=== PATIENT | female | born 1970 | race Caucasian/White ===

== ENCOUNTER 2020-09-12 09:53 | Inpatient (IN) | payer OTHER ==
[~2020-09-12] VITALS: Ht 177.8 cm; Wt 94.6 kg
[2020-09-12] MEDS ORDERED: ATOR40TA75 PO (10:42)
[2020-09-12] MEDS ORDERED: PARO20TA4 PO (10:42)
[2020-09-12 10:46] LABS: BASO % 0.5 % (0.0-1.0); EOS # 0.1 10^3/uL (0.0-0.5); EOS % 1.1 % (0.0-3.0); HEMOGLOBIN 12.1 g/dl (12.0-15.5); LYMPH # 1.8 10^3/uL (1.5-5.0); LYMPH % 23.9 % (24.0-44.0); MEAN CORPUSCULAR HEMOGLOBIN 30.9 pg (27.0-33.0); MEAN CORPUSCULAR HGB CONC 32.7 g/dl (32.0-36.5); MEAN CORPUSCULAR VOLUME 94.6 fl (80.0-96.0); MONO # 0.6 10^3/uL (0.0-0.8); MONO % 7.3 % (2.0-8.0); NEUTROPHILS # 5.1 10^3/uL (1.5-8.5); NEUTROPHILS % 66.9 % (36.0-66.0); PLATELET COUNT, AUTOMATED 267 10^3/uL (150-450); RED BLOOD COUNT 3.91 10^6/uL (4.00-5.40); WHITE BLOOD COUNT 7.6 10^3/uL (4.0-10.0)
--- NOTE | 2020-09-12 10:56 | REP ---
INDICATION: DYSPNEA/COUGH COMPARISON: None. TECHNIQUE: Portable AP view of the chest FINDINGS: The mediastinum is within normal limits. Cardiomegaly is suggested. The lung colby are clear without acute consolidation, effusion, or pneumothorax. Skeletal structures are intact. IMPRESSION: Cardiomegaly suggested. No acute cardiopulmonary process appreciated. <Electronically signed by Juan Manuel Castellanos > 09/12/20 [id number]
[2020-09-12 11:21] LABS: BLOOD UREA NITROGEN 16 MG/DL (7-18); CALCIUM LEVEL 8.6 MG/DL (8.5-10.1); CARBON DIOXIDE LEVEL 25 MEQ/L (21-32); CHLORIDE LEVEL 110 MEQ/L (98-107); CK-MB VALUE MASS 2.4 NG/ML (<3.6); CPK CREATINE PHOSPHOKINASE 130 U/L (26-192); CREATININE FOR GFR 0.89 MG/DL (0.55-1.30); GLOMERULAR FILTRATION RATE > 60.0 (>51); GLUCOSE, FASTING 100 MG/DL (70-100); MB/CK RELATIVE INDEX 1.85 (< OR =4); NT-PRO BNP 3889 PG/ML (<125); POTASSIUM SERUM 4.2 MEQ/L (3.5-5.1); SODIUM LEVEL 141 MEQ/L (136-145); TROPONIN I < 0.02 NG/ML (< 0.10)
[2020-09-12] MEDS ORDERED: ISOVUE-370 76% 100ML VIAL As Ordered ONE (12:31)
[2020-09-12] MEDS ORDERED: ACETAMINOPHEN TAB 650MG DOSE (2X325MG) PO PRN (12:35)
--- NOTE | 2020-09-12 12:40 | HPEPDOC ---
[facility] Medical History & Physical Date of Admission September 12, 2020 Date of Service: September 12, 2020 History and Physical Chief complaint: Who presented to the emergency room with complaints of shortness of breath History of present illness: Patient is a 49-year-old female with past medical history of high cholesterol, depression and GERD who presented to the emergency room with complaints of shortness of breath progressing over 1 week. Patient has reported a nonproductive cough. Reports some chest tightness. Denies any chest pain. Patient denies any lower extremity edema, but does report waking up at night short of breath. Patient reports that her days. Feels very fatigued. Patient denies any nausea, vomiting, any constipation, diarrhea, or urinary discomfort. She does report some upper abdominal fullness. Patient was that she quit smoking one month ago. Hospitalist service was contacted for an elevated BNP and cardiomegaly, and was suspected as congestive heart failure. Past Medical History: DLP Depression GERD Past Surgical History: Bilateral carpal tunnel surgery Allergies: See below Medications: See below Family History: - No history of malignancies Social History: - Denies the use of illicit drugs; rarely uses alcohol; quit smoking one month ago but was a smoker of 30 years at one PPD - Denies recent travel or sick contacts - Lives with sister - Occupation; reports that she works at [employer] Review of Systems: 10 point review of systems complete, all negative otherwise stated in HPI Physical exam: - Vitals: BP [124/81], HR [101], RR [16], Sat [96%RA], Temp [971F] - General: Lying in bed, No acute distress, Speaking in full sentences, AAOx3 - HEENT: NC, AT, PERRLA - CVS: Tachycardic, +S1S2 - Lungs: Fair air entry bilaterally, No appreciable wheezing / rales / rhonchi - Abdomen: Soft, Non-distended, Non-tender - Extremities: No lower extremity edema, No calf tenderness - Neuro: No focal motor or sensory deficit - Skin: No visible rashes Labs: See below Imaging: CXR 09/12: Cardiomegaly suggested. No acute cardiopulmonary process appreciated. EKG: See below Assessment and Plan: Shortness of breath - Patient presented to the ER complaints of shortness of breath, progressive over one week - Physical does not reveal any evidence of fluid overload - BNP noted to be 3889 - Imaging noted above with cardiomegaly and no significant evidence of fluid overload - EKG reviewed - Will get CT angiogram of chest - Will check ECHO / Telemetry / Troponin trend - Will determine need of diuretic therapy after imaging DLP - c/w Atorvastatin Depression - Patient appeared to be tearful in the room after she was told by the ER providers that she had CHF - c/w paroxetine GERD - Will start Protonix DVT prophylaxis - Will start Lovenox Vital Signs Vital Signs Date Time Temp Pulse Resp B/P (MAP) Pulse Ox O2 Delivery O2 Flow Rate FiO2 09/12/20 11:40 101 16 124/81 (95) 96 Room Air 09/12/20 09:54 97.1 Laboratory Data Labs 24H Laboratory Tests 2 09/12/20 10:32: Immature Granulocyte % (Auto) 0.3, Neutrophils (%) (Auto) 66.9H, Lymphocytes (%) (Auto) 23.9L, Monocytes (%) (Auto) 7.3, Eosinophils (%) (Auto) 1.1, Basophils (%) (Auto) 0.5, Neutrophils # (Auto) 5.1, Lymphocytes # (Auto) 1.8, Monocytes # (Auto) 0.6, Eosinophils # (Auto) 0.1, Basophils # (Auto) 0.0, Nucleated Red Blood Cells % (auto) 0.4H, Anion Gap 6L, Glomerular Filtration Rate > 60.0, Calcium Level 8.6, Total Creatine Kinase 130, Creatine Kinase MB 2.4, Creatine Kinase MB Relative Index 1.85, Troponin I < 0.02, JA-Rkq-M-Type Natriuretic Peptide 3889H, Thyroid Stimulating Hormone (TSH) 2.470 CBC/BMP Laboratory Tests 09/12/20 10:32 Microbiology Microbiology 09/12/20 Respiratory Virus Panel (PCR) (STALIN) - Final, Complete Home Medications Scheduled Atorvastatin Calcium (Atorvastatin Calcium) 40 Mg Tablet, 40 MG PO QHS Paroxetine HCl (Paroxetine) 20 Mg Tablet, 20 MG PO DAILY Allergies Coded Allergies: No Known Allergies (Unverified , 09/12/20) SEA BAINS MD September 12, 2020 12:40
--- NOTE | 2020-09-12 13:04 | REP ---
INDICATION: SOB COMPARISON: None. TECHNIQUE: Axial contrast enhanced images from the thoracic inlet to the upper abdomen using pulmonary embolus technique with multiplanar re-formations. 75 ml Isovue 370 intravenous contrast material administered without complication. This CT examination was performed using the following dose reduction techniques: Automated exposure control, adjustment of mA and/or kv according to the patient's size, and use of iterative reconstruction technique. FINDINGS: Satisfactory enhancement of the pulmonary vasculature is achieved and no filling defects are identified to suggest pulmonary embolus. Cardiomegaly is appreciated along with moderate bilateral pleural effusions and pulmonary vascular congestion. No consolidation. No adenopathy. IMPRESSION: 1. No pulmonary embolus. 2. Cardiomegaly and moderate pulmonary vascular congestion with moderate pleural effusions. <Electronically signed by Juan Manuel Castellanos > 09/12/20 1300
[2020-09-12 13:27] LABS: CK-MB VALUE MASS 2.3 NG/ML (<3.6); CPK CREATINE PHOSPHOKINASE 132 U/L (26-192); MB/CK RELATIVE INDEX 1.74 (< OR =4); TROPONIN I < 0.02 NG/ML (< 0.10)
[2020-09-12] MEDS ORDERED: FUROSEMIDE 40MG/4ML VIAL (J1940) IV ONE ×2 (14:00→21:00)
[2020-09-12 14:30] VITALS: BP 127/83
[2020-09-12] MEDS: ENOXAPARIN 40MG/0.4ML SYRINGE (J1650 PER 10MG) SC SCH (14:51)
[2020-09-12] MEDS: PANTOPRAZOLE 40MG TAB (PROTONIX) PO SCH (14:52)
[2020-09-12 16:00] VITALS: BP 129/76
[2020-09-12 17:12] LABS: CK-MB VALUE MASS 2.1 NG/ML (<3.6); CPK CREATINE PHOSPHOKINASE 132 U/L (26-192); MB/CK RELATIVE INDEX 1.59 (< OR =4); TROPONIN I < 0.02 NG/ML (< 0.10)
[2020-09-12 19:22] LABS: BLOOD UREA NITROGEN 16 MG/DL (7-18); CALCIUM LEVEL 9.2 MG/DL (8.5-10.1); CARBON DIOXIDE LEVEL 26 MEQ/L (21-32); CHLORIDE LEVEL 107 MEQ/L (98-107); CREATININE FOR GFR 1.02 MG/DL (0.55-1.30); GLOMERULAR FILTRATION RATE > 60.0 (>51); GLUCOSE, FASTING 100 MG/DL (70-100); MAGNESIUM LEVEL 1.9 MG/DL (1.8-2.4); PHOSPHORUS LEVEL 3.9 MG/DL (2.5-4.9); POTASSIUM SERUM 3.9 MEQ/L (3.5-5.1); SODIUM LEVEL 142 MEQ/L (136-145)
[2020-09-12 20:00] VITALS: BP 127/86
--- NOTE | 2020-09-12 20:11 | ECGEPIP ---
[facility] - ED Test Date: 2020-09-12 Pat Name: PAULO COFFMAN Department: Room: - Gender: Female Stockroom Clerk: LR : 1970 Requested By: Chaz Macedo Order Number: [id number] Reading MD: Ronnie Thomas Measurements Intervals [place] Rate: 99 P: 44 RI: 184 QRS: -15 QRSD: 88 T: 213 QT: 386 QTc: 495 Interpretive Statements Normal sinus rhythm Possible Left atrial enlargement Anterior infarct , age undetermined Low QRS complex voltage in the limb leads Prolonged QTc interval Comparison tracing not on file Electronically Signed on 09-12-2020 20:11:28 EDT by Ronnie Thomas
[2020-09-12] MEDS: ATORVASTATIN 20 MG TAB PO SCH (20:27)
[2020-09-12 23:10] LABS: CPK CREATINE PHOSPHOKINASE 126 U/L (26-192); MB/CK RELATIVE INDEX 1.59 (< OR =4); TROPONIN I < 0.02 NG/ML (< 0.10)
[2020-09-13] VITALS (8 sets, daily range): BP systolic 105–134; BP diastolic 62–89
[2020-09-13 05:13] LABS: HEMOGLOBIN 12.2 g/dl (12.0-15.5); MEAN CORPUSCULAR HEMOGLOBIN 30.7 pg (27.0-33.0); PLATELET COUNT, AUTOMATED 258 10^3/uL (150-450); RED BLOOD COUNT 3.98 10^6/uL (4.00-5.40); WHITE BLOOD COUNT 6.9 10^3/uL (4.0-10.0)
[2020-09-13 05:32] LABS: ATYPICAL LYMPH 4 % (0-5); BASOPHILS 2 % (0-1); EOSINOPHILS 2 % (0-3); LYMPHOCYTES 22 % (16-44); MONOCYTES 6 % (0-5); NEUTROPHILS 64 % (28-66); PLATELET CLUMPS SMALL AMT; PLATELET ESTIMATE NORMAL (NORMAL)
[2020-09-13 05:36] LABS: BLOOD UREA NITROGEN 18 MG/DL (7-18); CALCIUM LEVEL 8.8 MG/DL (8.5-10.1); CARBON DIOXIDE LEVEL 25 MEQ/L (21-32); CHLORIDE LEVEL 108 MEQ/L (98-107); CREATININE FOR GFR 0.91 MG/DL (0.55-1.30); GLOMERULAR FILTRATION RATE > 60.0 (>51); GLUCOSE, FASTING 99 MG/DL (70-100); MAGNESIUM LEVEL 2.2 MG/DL (1.8-2.4); POTASSIUM SERUM 4.3 MEQ/L (3.5-5.1); SODIUM LEVEL 140 MEQ/L (136-145)
--- NOTE | 2020-09-13 08:08 | REP ---
INDICATION: sob chf check resolution COMPARISON: None. TECHNIQUE: PA and lateral. FINDINGS: Cardiomegaly is again appreciated along with prominent pulmonary vascular markings and increased interstitial markings. Layering left pleural effusion. Findings are similar to prior examination and consistent with given history of CHF. No pneumothorax. IMPRESSION: Findings similar to prior examination with continued evidence for CHF including layering effusions (left greater than right) <Electronically signed by Juan Manuel Castellanos > 09/13/20 0808
[2020-09-13] MEDS ORDERED: metOLazone 5 MG TAB PO ONE ×2 (08:30→20:00)
[2020-09-13] MEDS ORDERED: FUROSEMIDE 20MG/2ML VIAL (J1940) IV SCH (09:00)
[2020-09-13] MEDS ORDERED: FUROSEMIDE 40MG/4ML VIAL (J1940) IV SCH (09:00)
[2020-09-13] MEDS ORDERED: METOPROLOL SUCC *XL* 25MG TAB (TopROL *XL*) PO SCH (09:00)
[2020-09-13] MEDS: ENOXAPARIN 40MG/0.4ML SYRINGE (J1650 PER 10MG) SC SCH (09:14)
[2020-09-13] MEDS: PANTOPRAZOLE 40MG TAB (PROTONIX) PO SCH (09:14)
[2020-09-13] MEDS: PARoxetine 20MG TABLET PO SCH (09:14)
--- NOTE | 2020-09-13 10:01 | ECHO ---
DATE OF PROCEDURE: 09/12/2020 Age: 49 Gender: Female Height: 70 inches Weight: 104 kg REFERRING PHYSICIAN: Tushar Torres M.D. INDICATION: Cardiomegaly. MEASUREMENTS: 2D Measurements: Intraventricular septum 1.08 cm Posterior wall 1.33 cm Left ventricle diastole 5.7 cm Aortic root 2.6 cm Aortic annulus 1.9 cm Left atrium 5.4 cm Left atrial volume index 46 cm Proximal ascending aorta 2.7 cm Inferior vena cava 2.9 cm with mild reduction of respiratory variation Doppler Measurements: Aortic valve velocity 135 cm/s No aortic regurgitation Aortic valve velocity 47.5 cm/s LVOT VTI 6.3 cm Mild-moderate mitral regurgitation No mitral stenosis Mitral E wave velocity (E/A fusion) Mitral A wave velocity 143 (E/A fusion) cm/s Moderate tricuspid regurgitation Estimated right ventricle systolic pressure 25 mmHg Estimated right atrial pressure 10 mmHg No pulmonic regurgitation MITRAL ANNULAR TISSUE DOPPLER E prime septal 3.7 cm/s, E prime lateral 6.4 cm/s DESCRIPTION: Rhythm was sinus tachycardia. A few PVCs were observed. Image quality was fair. This was a 2D, M-mode, color flow Doppler, and pulsed wave Doppler examination including mitral annular tissue Doppler. CONCLUSIONS: 1. Left ventricle is mildly dilated at end-diastole. Mild eccentric left ventricular hypertrophy. Paradoxical septal motion and severe global LV hypokinesis elsewhere. No LV thrombus. Appearance of low cardiac output state. Severe reduction of overall LV systolic function. LVEF 15-20% by visual assessment. Complete E/A fusion, which made complete assessment of LV diastolic function indeterminate during sinus tachycardia; however, mitral annular tissue Doppler velocities were reduced in keeping with at least some degree of LV diastolic dysfunction. 2. Severe left atrial dilatation by left atrial volume index. 3. Very mild mitral annular calcification. Mild-moderate mitral regurgitation. 4. Mild aortic valve sclerosis of a 3-cuspid aortic valve. No aortic regurgitation. 5. Suggestive of moderate elevation of estimated right ventricle systolic pressure (52 mmHg). Structurally normal appearing tricuspid leaflets. Moderate tricuspid regurgitation. Normal right ventricle size and systolic function. CVP estimated to be 10 mmHg. 6. Small pericardial effusion (circumferential) without diastolic chamber collapse. Pericardial effusion measured 0.6 cm over the posterior wall of the left ventricle at basal level. 7. Left pleural effusion. Results of this study were sent by text message via [employer] to Dr. Tushar Torres. Linda indicated that his account was currently active for accepting communications. DAVIDSON
--- NOTE | 2020-09-13 10:36 | IPN ---
PROGRESS NOTE DATE: 09/13/2020 SUBJECTIVE: The patient is seen and examined at the bedside. Chart has been reviewed. Telemetry showed three beats of PVCs yesterday, overnight four beats, and first-degree AV block this morning. The patient denies any lightheadedness or dizziness. No chest pain, pressure, tightness, lightheadedness, or dizziness. The patient's shortness of breath has completely resolved. She is in a net negative balance. OBJECTIVE: VITAL SIGNS: Temperature 97, pulse 90, respiratory rate 18, blood pressure 122/81, 95% on room air. INTAKE AND OUTPUT: Input 1200, output 4450, negative 3250, 103.8 kg yesterday, 100 kg today, 550 urine output overnight since midnight. GENERAL: Awake, alert, and oriented x3. Answering questions appropriately. No respiratory distress or use of respiratory accessory muscles. No temporal wasting. HEENT: No JVD. No thyromegaly. No cervical lymphadenopathy. Moist mucous membranes. LUNGS: Diminished. No wheezing, rales, or rhonchi. HEART: S1, S2. Sinus rhythm. ABDOMEN: Soft, nontender, obese, and nondistended. Positive bowel sounds x4 quadrants. EXTREMITIES: No cyanosis, clubbing, or pitting edema. LABORATORY DATA: CBC, metabolic panel,have all been reviewed all within normal limits. BNP yesterday was 3889. Respiratory panel was negative for Coronavirus. IMAGING DATA: CT chest 09/12/2020, showed no pulmonary embolism and moderate pulmonary vasculature congestion with moderate pleural effusions. ASSESSMENT AND PLAN: This is a 49-year-old female with body mass index (BMI) of 31.6 obesity admitted on 09/12/2020, with history of dyslipidemia, depression, and reflux with family history of coronary artery disease who presented with shortness of breath, found to have new onset congestive heart failure with BNP over 3000. Current issues: 1. New onset congestive heart failure with a known ejection fraction. CT chest showed no pulmonary embolism. Echocardiogram completed, but with no report. Cardiac markers have been negative. She is on Lasix 40 IV b.i.d., on telemetry monitoring, and electrocardiogram are stable. The patient's shortness of breath has significantly improved. She has a net negative balance with decreasing weight currently on fluid restriction and 2 gram sodium diet. 2. Dyslipidemia. Check lipid panel this morning. On chronic Lipitor. 3. Depression on Paxil. 4. Gastroesophageal reflux disease (GERD) on Protonix. 5. Disposition: Await 2D echo report. If diastolic dysfunction, may discharge today once euvolemic. If systolic dysfunction, cardiology consult and titrate medications. The patient may be transferred to med surg floor on telemetry. DAVIDSON
[2020-09-13] MEDS: NICOTINE 14 MG/24 HR TRANSDERMAL TD SCH (10:40)
[2020-09-13] MEDS ORDERED: SPIRONOLACTONE 25 MG TAB PO SCH (10:45)
[2020-09-13] MEDS ORDERED: NICO14PA TD (10:47)
[2020-09-13] MEDS ORDERED: ALDA25TA2 PO (10:47)
[2020-09-13] MEDS ORDERED: ENTR1TAB PO (10:47)
[2020-09-13] MEDS ORDERED: METO1TAB32 PO (10:47)
[2020-09-13] MEDS ORDERED: SELF1KIT MC (10:47)
[2020-09-13] MEDS ORDERED: TORS20TA2 PO (10:47)
[2020-09-13] MEDS: ENTRESTO 24-26MG TABLET (SACUBITRIL/VALSARTAN) PO SCH ×2 (11:34→21:32)
[2020-09-13 20:37] LABS: CREATININE FOR GFR 1.19 MG/DL (0.55-1.30); GLOMERULAR FILTRATION RATE 51.1 (>51); MAGNESIUM LEVEL 2.1 MG/DL (1.8-2.4); POTASSIUM SERUM 3.9 MEQ/L (3.5-5.1)
[2020-09-13] MEDS: ATORVASTATIN 20 MG TAB PO SCH (21:31)
[2020-09-13] MEDS: FUROSEMIDE 40MG/4ML VIAL (J1940) IV SCH (22:00)
[2020-09-14] MEDS: FUROSEMIDE 40MG/4ML VIAL (J1940) IV SCH (02:00)
[2020-09-14 04:00] VITALS: BP 98/58
[2020-09-14 05:21] LABS: BASO # 0.1 10^3/uL (0.0-0.2); BASO % 0.8 % (0.0-1.0); EOS # 0.2 10^3/uL (0.0-0.5); EOS % 1.7 % (0.0-3.0); HEMATOCRIT 43.3 % (36.0-47.0); LYMPH # 1.8 10^3/uL (1.5-5.0); MEAN CORPUSCULAR HEMOGLOBIN 30.2 pg (27.0-33.0); MEAN CORPUSCULAR VOLUME 91.4 fl (80.0-96.0); MONO # 0.9 10^3/uL (0.0-0.8); MONO % 9.1 % (2.0-8.0); NEUTROPHILS # 6.7 10^3/uL (1.5-8.5); NEUTROPHILS % 69.1 % (36.0-66.0); PLATELET COUNT, AUTOMATED 301 10^3/uL (150-450); RED BLOOD COUNT 4.74 10^6/uL (4.00-5.40); WHITE BLOOD COUNT 9.7 10^3/uL (4.0-10.0)
[2020-09-14 05:27] LABS: HEMOGLOBIN 14.3 g/dl (12.0-15.5)
[2020-09-14 05:40] LABS: CALCIUM LEVEL 9.5 MG/DL (8.5-10.1); CREATININE FOR GFR 1.04 MG/DL (0.55-1.30); GLOMERULAR FILTRATION RATE 59.7 (>51); MAGNESIUM LEVEL 1.9 MG/DL (1.8-2.4); POTASSIUM SERUM 4.2 MEQ/L (3.5-5.1)
[2020-09-14 07:16] VITALS: BP 106/71
--- NOTE | 2020-09-14 08:12 | REP ---
INDICATION: chf sob check resolution COMPARISON: 09/13/2020 TECHNIQUE: PA and lateral. FINDINGS: The mediastinum and cardiac silhouette are stable with mild cardiomegaly again noted. The lung colby demonstrate improved aeration with decreased pulmonary vascular congestion and essentially complete resolution to the lower lobe opacities and pleural effusions. Skeletal structures intact. IMPRESSION: Findings suggest essentially complete resolution to the CHF. No new acute process appreciated. <Electronically signed by Juan Manuel Castellanos > 09/14/20 0866
[2020-09-14] MEDS: NICOTINE 14 MG/24 HR TRANSDERMAL TD SCH (08:32)
[2020-09-14] MEDS: PARoxetine 20MG TABLET PO SCH (08:33)
[2020-09-14] MEDS: ENTRESTO 24-26MG TABLET (SACUBITRIL/VALSARTAN) PO SCH ×2 (08:33→20:18)
[2020-09-14] MEDS: ENOXAPARIN 40MG/0.4ML SYRINGE (J1650 PER 10MG) SC SCH (08:33)
[2020-09-14] MEDS: PANTOPRAZOLE 40MG TAB (PROTONIX) PO SCH (08:34)
[2020-09-14] MEDS: MIDODRINE 5 MG TAB PO SCH ×3 (08:34→15:39)
[2020-09-14] MEDS ORDERED: TORSEMIDE 20 MG TAB PO SCH (09:00)
[2020-09-14] MEDS ORDERED: MAG SULF 1GM/100ML (MAG RUN) 1 GM in IV 1 EA IV ONE (09:00)
[2020-09-14] MEDS: METOPROLOL SUCC *XL* 12.5MG PER 1/2 TAB (TopROL *XL*) PO SCH (10:27)
[2020-09-14] MEDS ORDERED: metOLazone 5 MG TAB PO ONE (10:30)
[2020-09-14] MEDS ORDERED: FUROSEMIDE injection 250 MG in D5W 225 ML IV SCH (11:00)
[2020-09-14] MEDS ORDERED: TORS10TA3 PO (11:18)
--- NOTE | 2020-09-14 11:43 | IPN ---
PROGRESS NOTE DATE: 09/14/2020 SUBJECTIVE: The patient denies any shortness of breath, chest pain, pressure, tightness, lightheadedness, or dizziness. The patient slept on her left side, flat on the bed about one pillow without any PND or orthopnea. She walked around the nurse's station about four times yesterday morning without any dyspnea on exertion, fatigue, palpitations. Telemetry remains sinus rhythm. She had episodes of sinus bradycardia but no dizziness, lightheadedness, or near syncopal episode. After the patient was given Entresto, Metoprolol and Spironolactone yesterday, blood pressure was 98/58 but still no dizziness. OBJECTIVE: Vital signs currently: Temperature 96.7, pulse 85, respiratory rate 18, blood pressure 106/71, 97% on room air. Input 1930. Output 4700. Negative 2770 yesterday. Current weight is 96.9 kg from admission weight 103.8 kg. Generally the patient is in no distress. No JVD. No thyromegaly. No cervical lymphadenopathy. No use of accessory muscles. No conversational dyspnea. HEENT: No JVD, no thyromegaly, no cervical lymphadenopathy. Moist mucous membranes. Lungs are diminished with bibasilar crackles, otherwise clear in upper lobes bilaterally. Heart: S1, S2 sinus rhythm. Episodes of sinus bradycardia. Abdomen is soft, nontender, nondistended. Obese. Positive bowel sounds. Extremities: No cyanosis, clubbing, no pitting edema. Telemetry shows 14 beats of nonsustained v-tach yesterday. Laboratory data notable for magnesium of 1.9, normal creatinine 1.04. Echocardiogram ejection fraction 15-20%. Moderate tricuspid regurgitation. Mild to moderate mitral regurgitation. Severe global left ventricular hypokinesis. ASSESSMENT AND PLAN: A 49-year-old female with history of dyslipidemia, obesity, BMI of 31.6, depression and gastroesophageal reflux disease, family history of coronary artery disease presented to the Emergency Room with shortness of breath, admitted on 09/12/2020 with new onset congestive heart failure, BNP over 3000. CURRENT ISSUES: 1. Acute systolic congestive heart failure, ejection fraction of 15-20%. Per manager of data Dr. Mackenzie, the patient should be started on Entresto, spironolactone, metoprolol succinate and should be seen at the cardiology office within five days of hospital discharge once she is euvolemic. Patient currently is being diuresed, complicated by low blood pressure of 98 systolic with mean arterial pressure of 71. The patient has been given Midodrine this morning 10 three times a day to increase her blood pressure. For diuresis we have discontinued boluses of diuretics and will place the patient on Lasix IV drip, continue with 1.7 fluid restriction. Strict inputs and outputs and daily weights. Her weight has decreased from 103.8 on admission to 96.9. Creatinine is stable at 1.04. While waiting for evaluation for ischemic cmp and aicd, will need defibrillator vest to decrease risk SCD prior to hospital discharge. 2. Nonsustained v-tach 13 beats secondary to poor systolic function and cardiomyopathy. The patient's magnesium will be kept above 2 and potassium above 4 at all times. Repeat electrolytes this afternoon after diuresis. Resume the patient's metoprolol if the patient's mean arterial pressure is greater than 75. 3. Dyslipidemia on Lipitor. 4. Gastroesophageal reflux on PPI. DISPOSITION: The patient needs further diuresis. Repeat chest x-ray this morning. Once diuresis is completed, the patient will be kept on Entresto, metoprolol, and torsemide. MTDD
[2020-09-14 12:00] VITALS: BP 93/66
[2020-09-14 16:00] VITALS: BP 104/62
[2020-09-14 19:24] LABS: CALCIUM LEVEL 9.6 MG/DL (8.5-10.1); CREATININE FOR GFR 1.32 MG/DL (0.55-1.30); GLOMERULAR FILTRATION RATE 45.4 (>51); MAGNESIUM LEVEL 2.1 MG/DL (1.8-2.4); POTASSIUM SERUM 4.3 MEQ/L (3.5-5.1)
[2020-09-14 20:00] VITALS: BP 96/66
[2020-09-14] MEDS: ATORVASTATIN 20 MG TAB PO SCH (20:17)
[2020-09-15 04:00] VITALS: BP 107/65
[2020-09-15] MEDS ORDERED: LORATADINE 10 MG TAB PO ONE (05:10)
[2020-09-15 06:24] LABS: BASO # 0.1 10^3/uL (0.0-0.2); BASO % 0.8 % (0.0-1.0); EOS # 0.2 10^3/uL (0.0-0.5); EOS % 1.8 % (0.0-3.0); HEMATOCRIT 48.2 % (36.0-47.0); LYMPH # 2.1 10^3/uL (1.5-5.0); LYMPH % 23.9 % (24.0-44.0); MEAN CORPUSCULAR HEMOGLOBIN 30.2 pg (27.0-33.0); MEAN CORPUSCULAR HGB CONC 33.2 g/dl (32.0-36.5); MEAN CORPUSCULAR VOLUME 90.9 fl (80.0-96.0); MONO % 10.9 % (2.0-8.0); NEUTROPHILS # 5.5 10^3/uL (1.5-8.5); NEUTROPHILS % 62.3 % (36.0-66.0); PLATELET COUNT, AUTOMATED 331 10^3/uL (150-450); WHITE BLOOD COUNT 8.8 10^3/uL (4.0-10.0)
[2020-09-15 06:48] LABS: CALCIUM LEVEL 9.7 MG/DL (8.5-10.1); CREATININE FOR GFR 1.15 MG/DL (0.55-1.30); GLOMERULAR FILTRATION RATE 53.2 (>51); MAGNESIUM LEVEL 2.3 MG/DL (1.8-2.4)
[2020-09-15] MEDS ORDERED: CALCIUM GLUCONATE 1,000 MG in D5W MINI-BAG PLUS 100 ML IV ONE (08:00)
[2020-09-15] MEDS ORDERED: TORSEMIDE 10 MG TABLET PO ONE (08:00)
[2020-09-15 08:26] VITALS: BP 113/56
[2020-09-15] MEDS ORDERED: CALCIUM CARBONATE 500 MG CHEW U/D PO ONE (08:35)
[2020-09-15] MEDS ORDERED: SPIRONOLACTONE 25 MG TAB PO SCH (09:00)
[2020-09-15] MEDS ORDERED: TORSEMIDE 10 MG TABLET PO SCH (09:00)
[2020-09-15] MEDS: PARoxetine 20MG TABLET PO SCH (09:02)
[2020-09-15] MEDS: MIDODRINE 5 MG TAB PO SCH ×2 (09:02→12:01)
[2020-09-15] MEDS: PANTOPRAZOLE 40MG TAB (PROTONIX) PO SCH (09:02)
[2020-09-15] MEDS: ENTRESTO 24-26MG TABLET (SACUBITRIL/VALSARTAN) PO SCH (09:02)
[2020-09-15] MEDS: ENOXAPARIN 40MG/0.4ML SYRINGE (J1650 PER 10MG) SC SCH (09:03)
[2020-09-15] MEDS: METOPROLOL SUCC *XL* 12.5MG PER 1/2 TAB (TopROL *XL*) PO SCH (09:08)
[2020-09-15] MEDS: NICOTINE 14 MG/24 HR TRANSDERMAL TD SCH (09:09)
--- NOTE | 2020-09-15 11:00 | IPN ---
PROGRESS NOTE DATE: 09/15/2020 SUBJECTIVE: Patient denies any shortness of breath, chest pain, pressure, tightness, dyspnea on exertion, PND or orthopnea. She complains of slight thirst. No dizziness or lightheadedness. OBJECTIVE/PHYSICAL EXAMINATION: VITAL SIGNS: Temperature 97.8, pulse 86, respiratory rate 16, blood pressure 113/56, 95% on room air. GENERAL: Patient is awake, alert, oriented x3. HEENT: No JVD, thyromegaly or cervical lymphadenopathy. Dry mucous membranes. LUNGS: Clear to auscultation. No wheezing, rales or rhonchi. HEART: S1, S2, sinus rhythm. ABDOMEN: Obese, soft, nontender, non-distended. Positive bowel sounds. EXTREMITIES: No pitting edema. INPUT/OUTPUT: Input overnight was 735 and output 2775, negative 2040. Admission weight was 103.8 kg and discharge weight is 94.6 kg. LABORATORY DATA 09/15/2020: CBC, metabolic panel have been reviewed. Creatinine 1.15. Repeat BNP 1791 from admission BNP of 3889. IMAGING STUDIES: Repeat imaging study 09/14/2020; resolution of CHF, no new acute process noted. ASSESSMENT AND PLAN: This is a 49 year-old female with history of dyslipidemia, gastroesophageal reflux disease and depression, admitted due to worsening shortness of breath, found to have new onset of congestive heart failure with systolic dysfunction, ejection fraction of 15 to 20%. Patient was started on I.V. Lasix with net negative balance for the past three days and decrease in weight from 103.8 kg to 94.6 kg. Patient was instructed about a 2 liter fluid restriction, strict I's and O's and daily weights at home. Cardiac markers were negative. EKG showed no acute ischemic changes. Patient had episodes of nonsustained VTACH on telemetry 13 beats, but hemodynamically stable despite mean arterial pressure dipping down into 76. Patient had no complaints of dizziness or lightheadedness, chest pain, pressure or tightness. Dr. Mackenzie, nut feeder, has been consulted for recommendations on medications. Once the patient was euvolemic, he recommended Torsemide 10 mg daily, Spironolactone 25 mg daily, Metoprolol Succinate 25 mg daily and Entresto one tablet b.i.d. 24-26 mg. Patient is a previous smoker; currently has a nicotine patch as well. PLAN: Patient is to have a defibrillator vest prior to hospital discharge. If stable on current new medication, she may be discharged home for cardiac rehab and immediate follow-up with Dr. Mackenzie for coronary angiogram stress testing and titration of her medications. Will defer to Dr. Mackenzie for further invasive workup as an outpatient. Patient remains a full code.
[2020-09-15 11:48] VITALS: BP 98/70
[2020-09-15] MEDS ORDERED: METOPROLOL SUCC *XL* 12.5MG PER 1/2 TAB (TopROL *XL*) PO ONE (12:00)
[2020-09-15 12:01] VITALS: BP 100/80
--- NOTE | 2020-09-16 12:36 | DSES ---
DISCHARGE SUMMARY DATE OF ADMISSION: 09/12/2020 DATE OF DISCHARGE: 09/15/2020 DISCHARGE DIAGNOSES: 1. New onset systolic congestive heart failure with depressed ejection fraction with ejection fraction of 15-20%. 2. Dilated cardiomyopathy. 3. Dyslipidemia. 4. Depression. 5. Gastroesophageal reflux disease. 6. Acute kidney injury. 7. Hyponatremia. 8. Nonsustained ventricular tachycardia (V-tach) 13 beats. DISCHARGE WEIGHT: 94.6 kg. ADMISSION WEIGHT: 103.6 to 103.8 kg. ADMISSION BRAIN NATRIURETIC PEPTIDE (BNP): 3889 DISCHARGE BRAIN NATRIURETIC PEPTIDE (BNP) 1791. DISCHARGE MEDICATIONS: 1. Entresto 24-26 one tablet b.i.d. 2. Spironolactone 25 mg q. a.m. 3. Torsemide 10 mg daily. 4. Nicotine patch 14 mg daily. 5. Metoprolol succinate 25 mg daily. DISCHARGE INSTRUCTIONS: The patient has a defibrillator vest prior to hospital discharge due to risk of sudden cardiac with her dilated cardiomyopathy with EF of 15%. She is to follow-up with Dr. Mackenzie within five days of hospital discharge for evaluation of her new onset systolic heart failure to rule out ischemic heart disease. The patient was instructed to follow a 1.8 liter fluid restriction, 2 gram sodium diet, and daily weights; to call Dr. Mackenzie's office if more than 2 pound weight gain. HOSPITAL COURSE: This is a 49-year-old female with history of dyslipidemia, reflux, and depression admitted due to worsening shortness of breath found to have new onset congestive heart failure with unknown ejection fraction. The patient was kept in net negative balance with IV Lasix and diuresed well from admission weight of 103.8 kg to a discharge weight of 94.6 kg. The patient had episodes of acute kidney injury of 1.3, which returned back to normal at 1.1 on discharge. EKG showed no acute ischemic changes. On telemetry, she had nonsustained V-tach of 13 beats, but hemodynamically stable and asymptomatic. The patient had episodes of low blood pressure of 98, but asymptomatic. In order to diurese better, the patient was kept on midodrine t.i.d. with good diuresis. The patient diuresed a total of 9 liters of urine throughout her four day hospital stay with decrease in weight from 103.8 kg to 94.6 kg on discharge. DISCHARGE PHYSICAL EXAMINATION: VITAL SIGNS: Temperature 97.6, pulse 86, respiratory rate 16, blood pressure 100/80, 95% on room air. GENERAL: The patient was awake, alert, and oriented to person, place, and time. Answering questions appropriately. NECK: No JVD. No thyromegaly. HEENT: Moist mucous membranes. LUNGS: Clear to auscultation with no wheezing, rales, or rhonchi. HEART: S1, S2. Sinus rhythm. ABDOMEN: Obese, soft, nontender, and nondistended. EXTREMITIES: No pitting edema bilaterally. No cyanosis or clubbing. LABORATORY DATA: On discharge white count 8.8, hemoglobin 16, hematocrit 48, platelet count 331,000. Sodium 135, potassium 4, chloride 98, bicarb 30, BUN 25, creatinine 1.15, glucose of 99. BNP of 1791. MICROBIOLOGY: Coronavirus-19 was negative. IMAGING DATA: CT chest on 09/12/2020, no pulmonary embolism, cardiomegaly, moderate pulmonary vascular congestion with moderate pleural effusions. Repeat chest x-ray on 09/14/2020, complete resolution of CHF and no new acute process. Time spent on discharge 30 minutes. MTDD
== END 2020-09-15 14:43 | disposition home or self-care (01) | DRG 194 ==
LOC: M ED 09:53 → M ED INP 13:29 → ENRESERV 13:43 → M PCU 14:27
PROVIDERS: ADMIT Internal Medicine; ATTEND General Practice
DX: I50.21 Acute systolic (congestive) heart failure (principal); I47.2 Ventricular tachycardia; N17.9 Acute kidney failure, unspecified; I42.0 Dilated cardiomyopathy; E87.1 Hypo-osmolality and hyponatremia; E78.5 Hyperlipidemia, unspecified; F32.9 Major depressive disorder, single episode, unspecified; K21.9 Gastro-esophageal reflux disease without esophagitis; Z87.891 Personal history of nicotine dependence; Z79.899 Other long term (current) drug therapy; Z20.822 Contact with and (suspected) exposure to COVID-19